=== PATIENT | male | born 1985 | race Two or more races ===

== ENCOUNTER 2017-08-31 11:16 | Emergency (ER) | payer MEDICAID, OTHER ==
[~2017-08-31] VITALS: Ht 180.3 cm; Wt 99.8 kg
--- NOTE | 2017-08-31 11:18 | NUR ---
PT TO ER BED 11. C/O DIZZINESS. WAS RECENTLY PUT ON HYPERTENSIVE MEDICATION X 1 MONTH. ALSO REQUESTING BENAZEPRIL. OTHERWISE STABLE AWAITING MD ABDUL.
--- NOTE | 2017-08-31 11:54 | NUR ---
DR BEARD AT BEDSIDE FOR EVAL.
--- NOTE | 2017-08-31 12:16 | NUR ---
Patient discharged to home in stable condition. Written and verbal after care instructions given. Patient verbalizes understanding of instruction.
[2017-08-31 12:17] VITALS: BP 145/102
== END 2017-08-31 12:18 | disposition home or self-care (01) ==
LOC: ER 11:19
DX: J06.9 Acute upper respiratory infection, unspecified (principal); I10 Essential (primary) hypertension
CPT/HCPCS: 87070; 87880; 99284; A4606; Z7610; 86403-TC

== ENCOUNTER 2017-09-03 00:34 | Emergency (ER) | payer MEDICAID ==
[~2017-09-03] VITALS: Ht 180.3 cm; Wt 99.8 kg
--- NOTE | 2017-09-03 00:52 | NUR ---
PT AMBULATORY TO ER BED 6. PT BIB SELF C/O NOSEBLEED OFF AND ON X 24 HOURS. VSS/RESP EVEN UNLABORED/NAD NOTED/SKIN WARM AND DRY/AOX4. AWAITING MD ABDUL.
--- NOTE | 2017-09-03 01:04 | NUR ---
Patient discharged to home in stable condition. Written and verbal after care instructions given. Patient verbalizes understanding of instruction. Pt ambulatory with a steady gait.
[2017-09-03 01:05] VITALS: BP 147/98
== END 2017-09-03 01:05 | disposition home or self-care (01) ==
LOC: ER 00:35
DX: R04.0 Epistaxis (principal); I10 Essential (primary) hypertension
CPT/HCPCS: 99281; A4606; Z7610; Z7502

== ENCOUNTER 2021-04-06 12:56 | Emergency (ER) | payer OTHER ==
[~2021-04-06] VITALS: Ht 177.8 cm; Wt 98.0 kg
--- NOTE | 2021-04-06 13:10 | NUR ---
PT DENIES BEING SUICIDAL OR FEELING DEPRESSED. HE STATED HE DRANK 15 TABLETS OF ATIVAN "TO FEEL BETTER"
--- NOTE | 2021-04-06 13:20 | NUR ---
Sandi Frank, girlfriend. [phone]
[2021-04-06 13:41] LABS: BASOPHILS # (AUTO) 0.1 K/uL (0.0-0.2); BASOPHILS % (AUTO) 0.9 % (0.0-2.0); EOSINOPHILS % (AUTO) 1.5 % (0.0-6.0); HEMATOCRIT 47 % (39-51); HEMOGLOBIN 16.1 g/dL (13.5-17.5); LYMPHOCYTES # (AUTO) 1.8 K/uL (0.8-4.8); LYMPHOCYTES % (AUTO) 19.4 % (20.0-44.0); MEAN CORPUSCULAR HGB CONC 35 g/dl (31.0-36.0); MEAN CORPUSCULAR VOLUME 97 fL (80-96); MONOCYTES # (AUTO) 1.1 K/uL (0.1-1.30); MONOCYTES % (AUTO) 11.2 % (2.0-12.0); NEUTROPHILS # (AUTO) 6.4 K/uL (1.8-8.9); PLATELET COUNT (AUTO) 146 K/uL (150-450); RED BLOOD CELL COUNT(AUTO) 4.83 MIL/uL (4.5-6.0); WHITE BLOOD COUNT (AUTO) 9.5 K/uL (4.3-11.0)
--- NOTE | 2021-04-06 13:59 | NUR ---
BARBARA SISTER PHONE# [phone].
--- NOTE | 2021-04-06 14:04 | NUR ---
UA SENT TO LAB.
[2021-04-06 14:07] LABS: BILIRUBIN,URINE Negative (NEGATIVE); COLOR,URINE YELLOW (YELLOW); LEUKOCYTE ESTERASE ,URINE Negative (NEGATIVE); NITRITE, URINE Negative (NEGATIVE); PH,URINE 5.5 (5.0-8.0); PROTEIN,URINE Negative (NEGATIVE); UGLUCOSE Negative (NEGATIVE); UROBILINOGEN,URINE 0.2 EU/dL (0.2)
[2021-04-06 14:18] LABS: CALCIUM, SERUM 9.1 mg/dL (8.5-10.1); CARBON DIOXIDE 23 mmol/L (21-32); CHLORIDE 103 mmol/L (98-107); CREATININE 0.8 mg/dL (0.6-1.3); GLUCOSE 112 mg/dL (74-106); POTASSIUM 3.7 mmol/L (3.5-5.1); SODIUM SERUM 140 mmol/L (136-145); UREA NITROGEN, BLOOD 8 mg/dL (7-18)
[2021-04-06 14:25] LABS: ALANINE AMINOTRANSFERASE 123 U/L (12-78); ALBUMIN 4.2 g/dL (3.4-5.0); ALCOHOL, BLOOD 4 mg/dL (0-0); ALKALINE PHOSPHATASE 90 U/L (46-116); ASPARTATE AMINOTRANSFERASE 79 U/L (15-37); BILIRUBIN,DIRECT 0.2 mg/dL (0.0-0.2); BILIRUBIN,TOTAL 0.7 mg/dL (0.2-1.0); TOTAL PROTEIN, SERUM 8.3 g/dL (6.4-8.2)
[2021-04-06 14:26] LABS: ACETAMINOPHEN 0 ug/ml (10-30)
--- NOTE | 2021-04-06 14:43 | NUR ---
REAL ESTATE FINANCIAL ANALYST DAVI NOTIFIED. 1 HOUR ETA.
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
--- NOTE | 2021-04-06 16:45 | NUR ---
DAVI CRISIS FISH INSPECTOR AT BEDSIDE TALKING TO PATIENT AND FAMILY.
--- NOTE | 2021-04-06 17:37 | NUR ---
PATIENT A/OX4, BREATHING EVEN AND UNLABORED, NO SOB NOTED. NEEDS ATTENDED. PATIENT DENIES SI/HI, FAMILY AT BEDSIDE. NO DISTRESS NOTED. DR RATLIFF AWARE OF PSYCH EVAL.
[2021-04-06 17:49] VITALS: BP 137/98
--- NOTE | 2021-04-06 17:49 | NUR ---
Patient discharged to home in stable condition. Written and verbal after care instructions given. Patient verbalizes understanding of instruction.
== END 2021-04-06 17:51 | disposition home or self-care (01) ==
LOC: ER 13:18
DX: T42.4X2A Poisoning by benzodiazepines, intentional self-harm, initial encounter (principal); R42 Dizziness and giddiness; Y92.019 Unspecified place in single-family (private) house as the place of occurrence of the external cause; I10 Essential (primary) hypertension; F41.0 Panic disorder [episodic paroxysmal anxiety]
CPT/HCPCS: 36415; 80048; 80076; 80143; 80307; 80320; 81003; 85025; 87426; 99285; C9803; G0480